=== PATIENT | male | born 1945 | race Caucasian/White ===

== ENCOUNTER 2016-12-15 14:18 | Outpatient (CLI) | payer MEDICARE, OTHER ==
[2016-12-15 13:34] LABS: CHOL/HDL RATIO 3.2 (<5.0); CHOLESTEROL 176 mg/dL; HDL CHOLESTEROL 55 mg/dL; LDL/HDL RATIO 1.8 (<3.6); TRIGLYCERIDES 118 mg/dL; VLDL CHOLESTEROL 24 mg/dL
== END 2016-12-15 14:19 | disposition home or self-care (01) ==
LOC: LAB.WCP 14:18
PROVIDERS: ATTEND Family Medicine
DX: Z00.00 Encounter for general adult medical examination without abnormal findings (principal); C85.90 Non-Hodgkin lymphoma, unspecified, unspecified site; I10 Essential (primary) hypertension; Z12.5 Encounter for screening for malignant neoplasm of prostate; E55.9 Vitamin D deficiency, unspecified
CPT/HCPCS: 36415; 80061; 82306; 84443; G0103; 84153

== ENCOUNTER 2017-03-17 08:57 | Outpatient (CLI) | payer MEDICARE, OTHER ==
[2017-03-17 12:27] LABS: ALBUMIN 4.1 g/dL (3.2-5.5); BILIRUBIN,TOTAL 1.4 mg/dL (0.2-1.0); CALCIUM 8.8 mg/dL (8.5-10.3); CREATININE 0.8 mg/dL (0.6-1.2); TOTAL PROTEIN 6.2 g/dL (6.7-8.2)
[2017-03-17 12:28] LABS: BASOPHILS # (AUTO) 0.1 10^3/uL (0.0-0.1); BASOPHILS % (AUTO) 1.3 %; EOSINOPHILS # (AUTO) 0.2 10^3/uL (0.0-0.7); EOSINOPHILS % (AUTO) 3.6 %; LYMPHOCYTES # (AUTO) 1.3 10^3/uL (1.5-3.5); LYMPHOCYTES % (AUTO) 24.7 %; MEAN CORPUSCULAR HEMOGLOBIN 31.6 pg (27.0-31.0); MEAN CORPUSCULAR HGB CONC 35.8 g/dL (32.0-36.0); MEAN CORPUSCULAR VOLUME 88.4 fL (80.0-94.0); MEAN PLATELET VOLUME 8.1 fL (7.4-11.4); MONOCYTES # (AUTO) 0.5 10^3/uL (0.0-1.0); MONOCYTES % (AUTO) 9.4 %; NEUTROPHILS # (AUTO) 3.1 10^3/uL (1.5-6.6); PLT - PLATELET COUNT 151 10^3/uL (130-450); RED BLOOD COUNT 4.75 10^6/uL (4.70-6.10); RED CELL DISTRIBUTION WIDTH 13.9 % (12.0-15.0); WHITE BLOOD COUNT 5.1 x10^3/uL (4.8-10.8)
== END 2017-03-17 08:58 | disposition home or self-care (01) ==
LOC: LAB.WCP 08:57
PROVIDERS: ATTEND Family Medicine
DX: I10 Essential (primary) hypertension (principal)
CPT/HCPCS: 36415; 80053; 85025

== ENCOUNTER 2017-10-18 13:03 | Outpatient (CLI) | payer MEDICARE, OTHER ==
[2017-10-18 13:23] LABS: BASOPHILS % (AUTO) 0.8 %; EOSINOPHILS # (AUTO) 0.2 10^3/uL (0.0-0.7); EOSINOPHILS % (AUTO) 4.5 %; LYMPHOCYTES # (AUTO) 1.5 10^3/uL (1.5-3.5); LYMPHOCYTES % (AUTO) 28.1 %; MEAN CORPUSCULAR HEMOGLOBIN 31.7 pg (27.0-31.0); MEAN CORPUSCULAR VOLUME 90.5 fL (80.0-94.0); MEAN PLATELET VOLUME 7.6 fL (7.4-11.4); MONOCYTES # (AUTO) 0.5 10^3/uL (0.0-1.0); MONOCYTES % (AUTO) 9.7 %; NEUTROPHILS % (AUTO) 56.9 %; PLT - PLATELET COUNT 156 10^3/uL (130-450); RED BLOOD COUNT 4.73 10^6/uL (4.70-6.10); RED CELL DISTRIBUTION WIDTH 14.4 % (12.0-15.0); WHITE BLOOD COUNT 5.2 x10^3/uL (4.8-10.8)
[2017-10-18 14:08] LABS: ALBUMIN 4.4 g/dL (3.2-5.5); ALKALINE PHOSPHATASE 59 IU/L (42-121); ALT ALANINE AMINOTRANSFERASE 27 IU/L (10-60); AMYLASE 46 U/L (28-100); AST ASPARTATE AMINOTRANSFERASE 33 IU/L (10-42); BILIRUBIN,TOTAL 2.3 mg/dL (0.2-1.0); BUN - BLOOD UREA NITROGEN 22 mg/dL (6-20); CALCIUM 9.3 mg/dL (8.5-10.3); CARBON DIOXIDE - CO2 29 mmol/L (21-32); CHLORIDE 100 mmol/L (101-111); CREATININE 0.7 mg/dL (0.6-1.2); GFR - MDRD 111 (>89); GLUCOSE 142 mg/dL (70-100); LIPASE 40 U/L (22-51); SODIUM 136 mmol/L (135-145); TOTAL PROTEIN 6.6 g/dL (6.7-8.2)
[2017-10-18 14:09] LABS: CRP - C-REACTIVE PROTEIN < 1.0 mg/dL (0-1.0)
--- NOTE | 2017-10-18 15:44 | XRAY Report ---
Reason: ABDOMINAL PAIN,LEFT LOWER QUADRANT Procedure Date: 10/18/2017 Accession Number: [id number] / [id number] Procedure: XR - Abdomen Acute CPT Code: FULL RESULT: EXAM: ABDOMINAL SERIES AND PA CHEST EXAM DATE: 10/18/2017 02:11 PM. CLINICAL HISTORY: Abdominal pain, left lower quadrant. COMPARISON: None. TECHNIQUE: 2 views abdomen and 1 view chest. FINDINGS: CHEST: Lungs/Pleura: No focal opacities. No effusion or pneumothorax. Mediastinum: Within exam limitations, cardiomediastinal contour is normal. ABDOMEN: Bowel Gas Pattern: Within normal limits. No dilated loops or abnormal fluid levels. Free Air: None. Other: None. IMPRESSION: Normal abdominal series (including 1-view chest). RADIA
== END 2017-10-18 13:04 | disposition home or self-care (01) ==
LOC: LAB 13:03
PROVIDERS: ATTEND Family Medicine
DX: R10.32 Left lower quadrant pain (principal)
CPT/HCPCS: 36415; 74022; 80053; 82150; 83690; 85025; 85651; 86140

== ENCOUNTER 2017-11-04 08:36 | Outpatient (CLI) | payer MEDICARE, OTHER ==
[2017-11-04] MEDS ORDERED: IOPAMIDOL-300 50 ML VIAL ONE (08:39)
[2017-11-04] MEDS ORDERED: IOPAMIDOL-300 100 ML VIAL ONE (08:39)
[2017-11-04] MEDS ORDERED: IOPAMIDOL-300 50 ML VIAL PO ONE (09:46)
[2017-11-04] MEDS ORDERED: IOPAMIDOL-300 100 ML VIAL IVP ONE (09:46)
--- NOTE | 2017-11-04 18:39 | CT Report ---
Reason: ABDOMINAL PAIN, LEFT LOWER QUADRANT Procedure Date: 11/04/2017 Accession Number: [id number] / [id number] Procedure: CT - Abdomen/Pelvis W/ CPT Code: FULL RESULT: EXAM: CT ABDOMEN AND PELVIS EXAM DATE: 11/04/2017 09:41 AM. CLINICAL HISTORY: Abdominal pain, left lower quadrant. COMPARISONS: Abdomen/pelvis with contrast 05/02/2016 9:55 AM. TECHNIQUE: Routine helical CT imaging was performed through the abdomen and pelvis. IV contrast: Yes . Enteric contrast: Yes. Reconstructions: Coronal and sagittal. In accordance with CT protocol optimization, one or more of the following dose reduction techniques were utilized for this exam: automated exposure control, adjustment of mA and/or KV based on patient size, or use of iterative reconstructive technique. FINDINGS: Lung Bases: Unremarkable. Liver: Fatty. No suspicious masses. Gallbladder/Bile Ducts: Unremarkable. Spleen: Unremarkable with incidental note of a probable flash filling hemangioma, stable and benign. Pancreas: Unremarkable. Adrenal Glands: Unremarkable. Kidneys: Numerous left renal parapelvic and cortical cysts. No suspicious masses or hydronephrosis. Peritoneal Cavity/Bowel: Severe colonic diverticulosis. No bowel obstruction or inflammatory process seen. No free air or significant free fluid. No masses or adenopathy. The appendix is not seen but there is no evidence of appendicitis. No excessive stool burden. Pelvic Organs: Moderately enlarged prostate with median lobe hypertrophy indenting into the posterior aspect of the bladder. Bladder otherwise appears unremarkable. Vasculature: No aneurysms or other significant abnormality. Bones: No significant abnormality. Other: Small fat-containing right inguinal hernia without apparent complication. IMPRESSION: 1. No acute inflammatory or obstructive process seen in the abdomen or pelvis. 2. Severe colonic diverticulosis without definitive diverticulitis. 3. Fatty liver. 4. Moderately enlarged prostate with median lobe hypertrophy indenting into the posterior aspect of the bladder. RADIA
== END 2017-11-04 08:37 | disposition home or self-care (01) ==
LOC: DI 08:36
PROVIDERS: ATTEND Family Medicine
DX: K57.30 Diverticulosis of large intestine without perforation or abscess without bleeding (principal); K76.0 Fatty (change of) liver, not elsewhere classified; N40.0 Benign prostatic hyperplasia without lower urinary tract symptoms; R10.32 Left lower quadrant pain
CPT/HCPCS: 74177; Q9967

== ENCOUNTER 2018-05-08 08:00 | Outpatient (CLI) | payer MEDICARE, OTHER ==
[2018-05-08 12:49] LABS: ALBUMIN 4.2 g/dL (3.2-5.5); ALBUMIN/GLOBULIN RATIO 1.7 (1.0-2.2); BILIRUBIN,TOTAL 2.1 mg/dL (0.2-1.0); CALCIUM 9.3 mg/dL (8.5-10.3); CREATININE 0.7 mg/dL (0.6-1.2); TOTAL PROTEIN 6.7 g/dL (6.7-8.2)
[2018-05-08 12:50] LABS: BASOPHILS % (AUTO) 0.7 %; EOSINOPHILS # (AUTO) 0.2 10^3/uL (0.0-0.7); EOSINOPHILS % (AUTO) 2.9 %; HGB - HEMOGLOBIN 15.4 g/dL (14.0-18.0); LYMPHOCYTES # (AUTO) 1.5 10^3/uL (1.5-3.5); LYMPHOCYTES % (AUTO) 25.9 %; MEAN CORPUSCULAR HEMOGLOBIN 31.6 pg (27.0-31.0); MEAN CORPUSCULAR HGB CONC 35.1 g/dL (32.0-36.0); MEAN CORPUSCULAR VOLUME 90.2 fL (80.0-94.0); MEAN PLATELET VOLUME 8.3 fL (7.4-11.4); MONOCYTES # (AUTO) 0.7 10^3/uL (0.0-1.0); MONOCYTES % (AUTO) 11.2 %; NEUTROPHILS # (AUTO) 3.4 10^3/uL (1.5-6.6); NEUTROPHILS % (AUTO) 59.3 %; PLT - PLATELET COUNT 167 10^3/uL (130-450); RED BLOOD COUNT 4.87 10^6/uL (4.70-6.10); WHITE BLOOD COUNT 5.8 x10^3/uL (4.8-10.8)
== END 2018-05-08 23:59 | disposition home or self-care (01) ==
LOC: LAB.WCP 08:00
PROVIDERS: ATTEND Family Medicine
DX: R10.9 Unspecified abdominal pain (principal)
CPT/HCPCS: 36415; 80053; 82150; 83690; 85025

== ENCOUNTER 2018-06-17 10:12 | Outpatient (CLI) | payer MEDICARE, OTHER | END 2018-06-17 10:13 | disposition critical access hospital (66) | LOC: EMS 10:12 | PROVIDERS: ATTEND Surgery | DX: R10.32 Left lower quadrant pain (principal); R14.0 Abdominal distension (gaseous) | CPT/HCPCS: A0425; A0427 ==

== ENCOUNTER 2018-06-17 10:41 | Emergency (ER) | payer MEDICARE, OTHER ==
[2018-06-17 11:25] LABS: BILIRUBIN,URINE NEGATIVE (NEGATIVE); GLUCOSE, URINE (UA) NEGATIVE (NEGATIVE); KETONES,URINE (UA) NEGATIVE (NEGATIVE); LEUKOCYTE ESTERASE, URINE NEGATIVE (NEGATIVE); NITRITE,URINE NEGATIVE (NEGATIVE); OCCULT BLOOD,URINE NEGATIVE (NEGATIVE); PROTEIN,URINE NEGATIVE (NEGATIVE); UROBILINOGEN,URINE 0.2 (NORMAL) E.U./dL (NORMAL)
[2018-06-17 11:27] LABS: CLARITY,URINE CLEAR (CLEAR)
[2018-06-17] MEDS ORDERED: HYDROmorphone 1 MG/ML CARPUJECT IVP STA (12:24)
--- NOTE | 2018-06-17 12:26 | ED Physician Documentation ---
PD HPI ABD PAIN - Stated complaint Stated Complaint: FLANK PX - Chief complaint Chief Complaint: Abd Pain - History obtained from History obtained from: Patient - History of Present Illness Timing - onset: Other (This is a 73-year-old gentleman with history of lymphoma in remission and appendectomy. He had diverticula on prior colonoscopy. He presents with 2 days of pain that moved over the last 36 hours from the left flank to the left lower quadrant associated with mild burning dysuria and frequency and he is missing one bowel movement this morning. There is no nausea or fevers. He is never had this before. He tried ibuprofen without relief.) Review of Systems Ten Systems: 10 systems reviewed and negative Constitutional: reports: Reviewed and negative Nose: reports: Reviewed and negative Throat: reports: Reviewed and negative Cardiac: reports: Reviewed and negative PD PAST MEDICAL HISTORY - Past Medical History Past Medical History: Yes Cardiovascular: None Respiratory: None Endocrine/Autoimmune: None GI: None : None HEENT: None Psych: None Musculoskeletal: None Derm: None Other Past Medical History: Lymphoma - Past Surgical History Past Surgical History: Yes General: Appendectomy HEENT: Tonsil/Adenoidectomy - Present Medications Home Medications: Ambulatory Orders Medication Instructions Recorded Confirmed Cholecalciferol (Vitamin D3) 5,000 unit PO DAILY 07/06/12 12/18/17 [Vitamin D-3] Multivitamin [Multi-Vitamin Daily] 1 each PO DAILY 07/06/12 12/18/17 Turmeric Root Extract [Turmeric] 1,500 mg PO DAILY 08/29/12 12/18/17 Vitamin B Complex [B-100 Complex] 1 each PO DAILY 05/12/14 12/18/17 Cyanocobalamin (Vitamin B-12) 3,000 mcg PO DAILY 05/18/15 12/18/17 [Vitamin B12] Zinc Acetate [Galzin] 30 mg PO DAILY 05/18/15 12/18/17 RX: Magnesium 250 mg ORAL DAILY 09/22/15 12/18/17 Ciprofloxacin HCl [Cipro] 500 mg PO BID #14 tablet 06/17/18 Hydrocodone/Acetaminophen 1 - 2 each PO Q6H PRN #14 tablet 06/17/18 [Hydrocodon-Acetaminophen 5-325] Metronidazole [Flagyl] 500 mg PO TID #21 tablet 06/17/18 - Allergies Allergies/Adverse Reactions: Allergies Allergy/AdvReac Type Severity Reaction Status Date / Time No Known Drug Allergies Allergy Verified 06/17/18 10:53 - Social History Does the pt smoke?: No Smoking Status: Never smoker Does the pt drink ETOH?: No Does the pt have substance abuse?: No - Family History Family history: reports: Non contributory - Immunizations Immunizations are current?: Yes - POLST Patient has POLST: No PD ED PE NORMAL - Vitals Vital signs reviewed: Yes - General General: Alert and oriented X 3, No acute distress - HEENT HEENT: PERRL, EOMI - Neck Neck: Supple, no meningeal sign, No bony TTP - Cardiac Cardiac: Other (tachycardic, regular) - Respiratory Respiratory: No respiratory distress, Clear bilaterally - Abdomen Abdomen: Normal bowel sounds, Soft, Non tender - Back Back: No CVA TTP - Derm Derm: Normal color, Warm and dry - Extremities Extremities: No edema, No calf tenderness / cord - Neuro Neuro: Alert and oriented X 3, Normal speech - Psych Psych: Normal mood, Normal affect Results - Vitals Vitals: Vital Signs - 24 hr 06/17/18 06/17/18 06/17/18 10:48 11:06 13:00 Temperature 36.7 C 36.6 C Heart Rate 110 H 102 H 83 Respiratory 16 16 16 Rate Blood Pressure 133/91 H 129/87 H 124/90 H O2 Saturation 95 94 94 06/17/18 15:44 Temperature 36.5 C Heart Rate 95 Respiratory 16 Rate Blood Pressure 129/89 H O2 Saturation 97 Oxygen O2 Source Room air - Labs Labs: Laboratory Tests 06/17/18 06/17/18 06/17/18 11:21 13:09 13:09 WBC 7.3 RBC 4.89 Hgb 15.2 Hct 44.1 MCV 90.2 MCH 31.0 MCHC 34.4 RDW 13.6 Plt Count 163 MPV 7.9 Neut # (Auto) 5.1 Lymph # (Auto) 1.3 L [place] # (Auto) 0.6 Eos # (Auto) 0.1 Baso # (Auto) 0.1 Absolute Nucleated RBC 0.00 Nucleated RBC % 0.0 Sodium 138 Potassium 4.0 Chloride 107 Carbon Dioxide 25 Anion Gap 6.0 BUN 18 Creatinine 0.7 Estimated GFR (MDRD) 111 Glucose 103 H Calcium 9.0 Total Bilirubin 1.9 H AST 27 ALT 28 Alkaline Phosphatase 55 Total Protein 6.3 L Albumin 4.1 Globulin 2.2 Albumin/Globulin Ratio 1.9 Lipase 33 Urine Color YELLOW Urine Clarity CLEAR Urine pH 7.0 Ur Specific [place] <=1.005 Urine Protein NEGATIVE Urine Glucose (UA) NEGATIVE Urine Ketones NEGATIVE Urine Occult Blood NEGATIVE Urine Nitrite NEGATIVE Urine Bilirubin NEGATIVE Urine Urobilinogen 0.2 (NORMAL) Ur Leukocyte Esterase NEGATIVE Ur Microscopic Review NOT INDICATED Urine Culture Comments NOT INDICATED - Rads (name of study) CT KUB Radiology: EMP read contemporaneously (Renal cysts, one which needs follow-up, diverticulosis and prostatic megaly.) PD MEDICAL DECISION MAKING - ED course ED course: 73-year-old gentleman with left flank pain moving the left lower quadrant very reminiscent of renal colic but without hematuria or findings on CT. There is no shingles rash but advised to watch out for this. After single dose of Dilaudid he was pain-free. He remained nontender on reevaluation. His lab work was unremarkable. However that point we got him up and his pain recurred. The CT was repeated with IV contrast and demonstrated colitis which he was treated for with Cipro and Flagyl. Departure - Departure Disposition: Home, Self Care Clinical Impression: Flank pain Condition: Good Record reviewed to determine appropriate education?: Yes Instructions: ED Abdominal Pain Unkn Cause Male Prescriptions: Ciprofloxacin HCl [Cipro] 500 mg PO BID #14 tablet Hydrocodone/Acetaminophen [Hydrocodon-Acetaminophen 5-325] 1 - 2 each PO Q6H PRN #14 tablet PRN Reason: pain Metronidazole [Flagyl] 500 mg PO TID #21 tablet Comments: The second CAT scan demonstrated colitis which should be successfully treated with antibiotics. Follow-up with your doctor as you should have a colonoscopy in approximately 8 weeks time after you are healed. Return if not better in 48 hours or anytime if worse or new symptoms develop. Also, you did have multiple renal cysts and diverticulosis. The radiologist was concerned about 1 of the cysts and recommended an MRI, but that would not cause pain. He also have degenerative disease in your back which could cause referred pain. There is no evidence of shingles at this point but watch out and return for any rash. Return if pain recurs. Follow-up with your doctor in a few days. Take this set of discharge instructions in the CAT scan read with you. Your blood work is normal. Discharge Date/Time: 06/17/18 15:51
--- NOTE | 2018-06-17 13:16 | CT Report ---
Reason: L flank pain Procedure Date: 06/17/2018 Accession Number: [id number] / [id number] Procedure: CT - Abdomen/Pelvis WO CPT Code: FULL RESULT: EXAM: CT ABDOMEN AND PELVIS (CT KUB) EXAM DATE: 06/17/2018 12:52 PM. CLINICAL HISTORY: L flank pain. COMPARISONS: ABDOMEN/PELVIS W05/02/2016 9:55 AM ABDOMEN/PELVIS W11/04/2017 9:36 AM. TECHNIQUE: Routine axial helical CT imaging was performed through the abdomen and pelvis without IV contrast. Reconstructions: Coronal and sagittal. In accordance with CT protocol optimization, one or more of the following dose reduction techniques were utilized for this exam: automated exposure control, adjustment of mA and/or KV based on patient size, or use of iterative reconstructive technique. FINDINGS: Lung Bases: Streaky scarring/atelectasis bilaterally. Right Kidney/Ureter: No hydronephrosis or nephrolithiasis. Left Kidney/Ureter: No hydronephrosis or nephrolithiasis. Again seen are multiple cortical and peripelvic cysts. There is a hyperdense lesion in the lower pole measuring 5 mm in diameter, which may representing complex renal cyst. Other Solid Organs: Unchanged size and appearance of scattered hypodense lesions in the liver, which may represent small cysts or hemangiomas. The adrenal glands, spleen, and pancreas are unremarkable. Gallbladder/Bile Ducts: The gallbladder is partially contracted. Peritoneal Cavity: Nonobstructive bowel gas pattern. Postoperative changes to the base of the cecum, possibly from prior appendectomy. The appendix is not visualized. No inflammatory changes at the base of the cecum. There is diffuse colonic diverticulosis without evidence of acute diverticulitis. No free air or free fluid. Pelvic Organs: The prostate is mildly enlarged and heterogeneous. The urinary bladder is unremarkable. Fat-containing right inguinal hernia. Vasculature: Scattered calcified atherosclerotic plaques throughout the abdominal aorta and iliac arteries without evidence of aneurysm. Other: The bones are osteopenic. Mild multilevel degenerative facet arthropathy. Degenerative disk disease at L3-L4, L4-L5, and L5-S1. IMPRESSION: No hydronephrosis or nephrolithiasis. Multiple left renal cortical and peripelvic cysts. A hyperdense lesion is seen in the lower pole of the left kidney, which may represent a complex renal cyst with small solid mass not entirely excluded. This could be further evaluated with renal MRI on an outpatient basis. Diffuse colonic diverticulosis without evidence of acute diverticulitis. Mild prostatomegaly. RAD[facility]
[2018-06-17 13:27] LABS: BASOPHILS # (AUTO) 0.1 10^3/uL (0.0-0.1); BASOPHILS % (AUTO) 1.4 %; EOSINOPHILS # (AUTO) 0.1 10^3/uL (0.0-0.7); EOSINOPHILS % (AUTO) 1.1 %; HGB - HEMOGLOBIN 15.2 g/dL (14.0-18.0); LYMPHOCYTES # (AUTO) 1.3 10^3/uL (1.5-3.5); LYMPHOCYTES % (AUTO) 18.4 %; MEAN CORPUSCULAR HGB CONC 34.4 g/dL (32.0-36.0); MEAN CORPUSCULAR VOLUME 90.2 fL (80.0-94.0); MEAN PLATELET VOLUME 7.9 fL (7.4-11.4); MONOCYTES # (AUTO) 0.6 10^3/uL (0.0-1.0); MONOCYTES % (AUTO) 8.6 %; NEUTROPHILS # (AUTO) 5.1 10^3/uL (1.5-6.6); NEUTROPHILS % (AUTO) 70.5 %; PLT - PLATELET COUNT 163 10^3/uL (130-450); RED BLOOD COUNT 4.89 10^6/uL (4.70-6.10); RED CELL DISTRIBUTION WIDTH 13.6 % (12.0-15.0); WHITE BLOOD COUNT 7.3 x10^3/uL (4.8-10.8)
[2018-06-17 13:44] LABS: ALBUMIN 4.1 g/dL (3.2-5.5); ALBUMIN/GLOBULIN RATIO 1.9 (1.0-2.2); BILIRUBIN,TOTAL 1.9 mg/dL (0.2-1.0); CREATININE 0.7 mg/dL (0.6-1.2); TOTAL PROTEIN 6.3 g/dL (6.7-8.2)
[2018-06-17] MEDS ORDERED: IOVERSOL 320 100 ML VIAL IVP ONE ×2 (14:26→14:41)
--- NOTE | 2018-06-17 15:10 | CT Report ---
Reason: IV only, persistent L mid abd pain Procedure Date: 06/17/2018 Accession Number: [id number] / [id number] Procedure: CT - Abdomen/Pelvis W CPT Code: FULL RESULT: EXAM: CT ABDOMEN AND PELVIS EXAM DATE: 06/17/2018 02:39 PM. CLINICAL HISTORY: Persistent L mid abd pain. COMPARISONS: ABDOMEN/PELVIS W/O 06/17/2018 12:46 PM ABDOMEN/PELVIS W/ 11/04/2017 9:36 AM. TECHNIQUE: Routine helical CT imaging was performed through the abdomen and pelvis. IV contrast: OPTIray 320 90 ML. Enteric contrast: No. Reconstructions: Coronal and sagittal. In accordance with CT protocol optimization, one or more of the following dose reduction techniques were utilized for this exam: automated exposure control, adjustment of mA and/or KV based on patient size, or use of iterative reconstructive technique. FINDINGS: Lung Bases: Mild bibasal atelectasis/scarring. Few scattered left basal pulmonary calcifications may be postinflammatory. Moderate coronary artery calcifications to the extent visualized. Liver: Probable fatty liver. Stable nonspecific 6 mm segment 4B hypodensity (3/18), possibly cyst. Gallbladder/Bile Ducts: Unremarkable. Spleen: Stable small hypervascular splenic lesion, probably flash filling hemangioma. Pancreas: Normal. Adrenal Glands: Normal. Kidneys: No definite hydronephrosis. Similar parapelvic cysts more numerous on the left and small left renal cortical hypodensities. On the prior noncontrast study, a hyperdense 5 mm lower pole lesion was described, not well evaluated on the present contrast-enhanced study. No convincing solid mass. No definite renal calculi. Ureters are symmetric, nondilated without convincing calculus. Peritoneal Cavity/Bowel: No free air or free fluid. Fairly extensive pancolonic diverticulosis. Evidence of prior partial right colectomy. There is apparent persistent mild segmental wall thickening of the mid to distal sigmoid colon, may relate to peristalsis. Nonspecific segmental colitis would be an additional diagnostic consideration. Neoplasia not excluded. The appendix is well visualized and normal. Pelvic Organs: Unremarkable. Vasculature: No aneurysm. Scattered mild atherosclerotic calcification. Bones: No significant abnormality. Other: Small fat-containing right inguinal hernia or cord lipoma. IMPRESSION: 1. Apparent mild segmental wall thickening of the mid to distal sigmoid colon, may relate to part peristalsis however nonspecific segmental colitis would be an additional diagnostic consideration. Neoplasia not excluded. 2. Pancolonic diverticulosis without acute diverticulitis. 3. Other findings as noted above. RADIA
[2018-06-17] MEDS ORDERED: metroNIDAZOLE 250 MG TABLET PO STA (15:19)
[2018-06-17] MEDS ORDERED: CIPROFLOXACIN 250 MG TABLET PO STA (15:19)
[2018-06-17 15:46] VITALS: BP 129/89
== END 2018-06-17 15:51 | disposition home or self-care (01) ==
LOC: EDUNIT# → ED 10:41
DX: K52.9 Noninfective gastroenteritis and colitis, unspecified (principal); K57.30 Diverticulosis of large intestine without perforation or abscess without bleeding; N28.1 Cyst of kidney, acquired; Z85.72 Personal history of non-Hodgkin lymphomas
CPT/HCPCS: 36415; 74176; 74177; 80053; 81003; 83690; 85025; 96374; 99283; 99284; A9270; J1170; Q9967; 81001; 87086

== ENCOUNTER 2018-07-03 11:03 | Emergency (ER) | payer MEDICARE, OTHER ==
[2018-07-03 11:35] LABS: BASOPHILS # (AUTO) 0.1 10^3/uL (0.0-0.1); BASOPHILS % (AUTO) 1.1 %; EOSINOPHILS # (AUTO) 0.2 10^3/uL (0.0-0.7); EOSINOPHILS % (AUTO) 3.5 %; HGB - HEMOGLOBIN 15.9 g/dL (14.0-18.0); LYMPHOCYTES # (AUTO) 1.4 10^3/uL (1.5-3.5); LYMPHOCYTES % (AUTO) 24.4 %; MEAN CORPUSCULAR HEMOGLOBIN 31.3 pg (27.0-31.0); MEAN CORPUSCULAR HGB CONC 34.1 g/dL (32.0-36.0); MEAN CORPUSCULAR VOLUME 91.7 fL (80.0-94.0); MEAN PLATELET VOLUME 7.7 fL (7.4-11.4); MONOCYTES # (AUTO) 0.6 10^3/uL (0.0-1.0); MONOCYTES % (AUTO) 10.9 %; NEUTROPHILS # (AUTO) 3.5 10^3/uL (1.5-6.6); NEUTROPHILS % (AUTO) 60.1 %; PLT - PLATELET COUNT 177 10^3/uL (130-450); RED BLOOD COUNT 5.07 10^6/uL (4.70-6.10); WHITE BLOOD COUNT 5.7 x10^3/uL (4.8-10.8)
[2018-07-03 11:35] LABS: BILIRUBIN,URINE NEGATIVE (NEGATIVE); GLUCOSE, URINE (UA) NEGATIVE (NEGATIVE); KETONES,URINE (UA) NEGATIVE (NEGATIVE); LEUKOCYTE ESTERASE, URINE NEGATIVE (NEGATIVE); NITRITE,URINE NEGATIVE (NEGATIVE); OCCULT BLOOD,URINE NEGATIVE (NEGATIVE); PROTEIN,URINE NEGATIVE (NEGATIVE); UROBILINOGEN,URINE 0.2 (NORMAL) E.U./dL (NORMAL)
[2018-07-03 11:37] LABS: CLARITY,URINE CLEAR (CLEAR)
--- NOTE | 2018-07-03 11:47 | ED Physician Documentation ---
PD HPI ABD PAIN - Stated complaint Stated Complaint: SIDE PX/SWELLING - Chief complaint Chief Complaint: Abd Pain - History obtained from History obtained from: Patient - History of Present Illness Timing - onset: How many weeks ago (2) Timing - duration: Weeks (2) Timing - details: Gradual onset, Still present, Waxing and waning Quality: Cramping, Aching, Pain Location: LUQ (and lateral left abd.) Improved by: No: Eating Worsened by: Other (standing position he notes bulging left side of abd and it does feel "stretched" and sore when bulging.). No: Eating Associated symptoms: No: Fever, Nausea, Vomiting, Diarrhea, Constipation, Dysuria, Hematuria, Loss of appetite Recently seen: Emergency Dept (2 weeks ago and had CT showing some mild colitis descending colon. Rx with cipro/flagyl and patient says he had improved some but not completely with that. Hurts with standing and noted bulging of abd on left side when standing.) Review of Systems Constitutional: denies: Fever, Chills, Myalgias Nose: denies: Rhinorrhea / runny nose, Congestion Throat: denies: Sore throat Cardiac: denies: Chest pain / pressure, Palpitations Respiratory: denies: Dyspnea, Cough GI: reports: Abdominal Pain, Abdominal Swelling (left side when standing or with lifting). denies: Nausea, Vomiting, Constipation, Diarrhea : denies: Dysuria, Frequency Skin: denies: Rash, Lesions Neurologic: denies: Generalized weakness, Near syncope PD PAST MEDICAL HISTORY - Past Medical History Cardiovascular: None Respiratory: None Endocrine/Autoimmune: None, Other GI: None : None HEENT: None Psych: None Musculoskeletal: None Derm: None Other Past Medical History: lymphoma, stem cell transplant - Past Surgical History Past Surgical History: Yes General: Appendectomy HEENT: Tonsil/Adenoidectomy - Present Medications Home Medications: Ambulatory Orders Medication Instructions Recorded Confirmed Multivitamin [Multi-Vitamin Daily] 1 each PO DAILY 07/06/12 07/03/18 Turmeric Root Extract [Turmeric] 1,500 mg PO DAILY 08/29/12 07/03/18 Meloxicam 15 mg PO DAILY 07/03/18 07/03/18 Naproxen 500 mg PO BID #20 tablet 07/03/18 [place]-3/Dha/Epa/Fish Oil [Fish Oil 1 each PO 07/03/18 1,000 mg Softgel] Saccharomyces Boulardii [Florastor] 250 mg PO BID #20 capsule 07/03/18 Tramadol HCl 50 mg PO Q6H PRN #15 tablet 07/03/18 - Allergies Allergies/Adverse Reactions: Allergies Allergy/AdvReac Type Severity Reaction Status Date / Time No Known Drug Allergies Allergy Verified 07/03/18 11:38 - Social History Does the pt smoke?: No Smoking Status: Never smoker Does the pt drink ETOH?: No Does the pt have substance abuse?: No - Immunizations Immunizations are current?: Yes - POLST Patient has POLST: No PD ED PE NORMAL - Vitals Vital signs reviewed: Yes - General General: Alert and oriented X 3, No acute distress, Well developed/nourished - Neck Neck: Supple, no meningeal sign, No adenopathy - Cardiac Cardiac: RRR, No murmur - Respiratory Respiratory: Clear bilaterally - Abdomen Abdomen: Soft, Non distended, No organomegaly, Other (some tender left lateral abd wall and abd. In standing position, there is broad ventral distension left lateral abd, with some tenderness laterally. ). No: Normal bowel sounds (diminished) - Male Male : Deferred - Rectal Rectal: Deferred - Back Back: No CVA TTP - Derm Derm: Normal color, Warm and dry - Extremities Extremities: No deformity, No tenderness to palpate, Normal ROM s pain, No edema , No calf tenderness / cord - Neuro Neuro: Alert and oriented X 3, No motor deficit, Normal speech Results - Vitals Vitals: Oxygen O2 Source Room air - Labs Labs: Laboratory Tests 07/03/18 07/03/18 07/03/18 11:20 11:20 11:30 WBC 5.7 RBC 5.07 Hgb 15.9 Hct 46.5 MCV 91.7 MCH 31.3 H MCHC 34.1 RDW 14.0 Plt Count 177 MPV 7.7 Neut # (Auto) 3.5 Lymph # (Auto) 1.4 L [place] # (Auto) 0.6 Eos # (Auto) 0.2 Baso # (Auto) 0.1 Absolute Nucleated RBC 0.00 Nucleated RBC % 0.1 Sodium 139 Potassium 4.3 Chloride 102 Carbon Dioxide 28 Anion Gap 9.0 BUN 25 H Creatinine 1.0 Estimated GFR (MDRD) 73 L Glucose 78 Calcium 9.8 Total Bilirubin 1.9 H AST 29 ALT 29 Alkaline Phosphatase 45 Total Protein 6.7 Albumin 4.6 Globulin 2.0 L Albumin/Globulin Ratio 2.2 Lipase 40 Urine Color YELLOW Urine Clarity CLEAR Urine pH 6.0 Ur Specific [place] <=1.005 Urine Protein NEGATIVE Urine Glucose (UA) NEGATIVE Urine Ketones NEGATIVE Urine Occult Blood NEGATIVE Urine Nitrite NEGATIVE Urine Bilirubin NEGATIVE Urine Urobilinogen 0.2 (NORMAL) Ur Leukocyte Esterase NEGATIVE Ur Microscopic Review NOT INDICATED Urine Culture Comments NOT INDICATED PD MEDICAL DECISION MAKING - ED course Complexity details: reviewed old records, reviewed results, considered differential (he does have broad ventral hernia left side with standing up. It is too broad to concern about incerceration. It could be causing some muscular lateral abd pain. He may have some residual colitis from recent workup. ), d/w patient Departure - Departure Disposition: 01 Home, Self Care Clinical Impression: Colitis Ventral hernia Qualifiers: Obstruction and gangrene presence: without obstruction or gangrene Qualified Code(s): K43.9 - Ventral hernia without obstruction or gangrene Condition: Stable Record reviewed to determine appropriate education?: Yes Instructions: Abdominal Pain Follow-Up: Lev Orourke MD [Primary Care Provider] - Prescriptions: Naproxen 500 mg PO BID #20 tablet Saccharomyces Boulardii [Florastor] 250 mg PO BID #20 capsule Tramadol HCl 50 mg PO Q6H PRN #15 tablet PRN Reason: Pain Comments: Your pain on the side may be related to some muscular pain associated with the ventral hernia. There could still be some persistence of the colitis and some inflammation due to that. We can treat it with some anti-inflammatories regularly as well as adding a probiotic to your usual medication regimen. You can add Tylenol or tramadol if needed for pains. Follow-up with your primary care if still not improved over the next week or so. If you have increasing pa in, then return as there may still be some infectious component that worsens. Discharge Date/Time: 07/03/18 13:23
[2018-07-03 11:59] LABS: ALBUMIN 4.6 g/dL (3.2-5.5); ALBUMIN/GLOBULIN RATIO 2.2 (1.0-2.2); BILIRUBIN,TOTAL 1.9 mg/dL (0.2-1.0); CALCIUM 9.8 mg/dL (8.5-10.3); TOTAL PROTEIN 6.7 g/dL (6.7-8.2)
[2018-07-03] MEDS ORDERED: KETOROLAC 30 MG/ML VIAL IVP STA (12:23)
[2018-07-03] MEDS ORDERED: traMADol 50 MG TABLET PO STA (12:23)
[2018-07-03 13:17] VITALS: BP 127/77
== END 2018-07-03 13:23 | disposition home or self-care (01) ==
LOC: ED 11:03
DX: K52.9 Noninfective gastroenteritis and colitis, unspecified (principal); K43.9 Ventral hernia without obstruction or gangrene; Z85.72 Personal history of non-Hodgkin lymphomas; Z94.84 Stem cells transplant status
CPT/HCPCS: 36415; 80053; 81003; 83690; 85025; 96374; 99283; 99284; A9270; 81001; 87086

== ENCOUNTER 2018-07-19 13:19 | Outpatient (CLI) | payer MEDICARE, OTHER ==
[2018-07-19] MEDS ORDERED: GADOBUTROL 10 MMOL/10 ML VIAL ONE (14:37)
[2018-07-19] MEDS ORDERED: GADOBUTROL 10 MMOL/10 ML VIAL IVP ONE (15:29)
--- NOTE | 2018-07-20 04:58 | MRI Report ---
Reason: RENAL CYST Procedure Date: 07/19/2018 Accession Number: [id number] / [id number] Procedure: MRI - Abdomen W/WO CPT Code: FULL RESULT: EXAM: MR ABDOMEN WITH AND WITHOUT CONTRAST (MR KIDNEYS) EXAM DATE: 07/19/2018 03:15 PM. CLINICAL HISTORY: Renal cyst. COMPARISON: ABDOMEN/PELVIS W/O 06/17/2018 12:46 PM, ABDOMEN/PELVIS W/ 06/17/2018 2:31 PM, ABDOMEN/PELVIS W/ 11/04/2017 9:36 AM. TECHNIQUE: Multiplanar breath-hold T1, T2, and DWI sequences obtained through the kidneys and abdomen on an MR scanner. Images obtained before and after administration of 8 mL Gadavist intravenous contrast. Multiphase sequences obtained through the kidneys. FINDINGS: Lung Bases: Unremarkable. Liver: No solid-appearing mass identified. Scattered tiny cysts. There is fatty infiltration. No vascular thrombosis. Biliary System: Gallbladder appears normal. No intrahepatic or extrahepatic biliary duct dilatation. Pancreas: No mass or duct dilatation seen. No peripancreatic inflammatory changes identified. Spleen: Small early filling hemangioma, otherwise unremarkable. Kidneys: Bilateral renal peripelvic cysts, left more than right. Additionally, there are left renal cortical cysts, including a couple of tiny proteinaceous cysts at the lower pole. No suspicious appearing mass. No hydronephrosis. Adrenals: Normal. Peritoneal Cavity: Colonic diverticulosis. Otherwise grossly unremarkable where seen. Study not designed to evaluate bowel. Other: None. IMPRESSION: 1. Bilateral benign renal cysts, including the tiny hyperdense left renal cyst seen on the recent CT. No suspicious renal mass. 2. Fatty liver. 3. Colonic diverticulosis. RADIA
== END 2018-07-19 13:20 | disposition home or self-care (01) ==
LOC: DI 13:19
PROVIDERS: ATTEND Family Medicine
DX: Q61.02 Congenital multiple renal cysts (principal); K76.0 Fatty (change of) liver, not elsewhere classified; K57.30 Diverticulosis of large intestine without perforation or abscess without bleeding
CPT/HCPCS: 74183; A9585

== ENCOUNTER 2018-10-17 09:59 | Outpatient (CLI) | payer MEDICARE, OTHER ==
--- NOTE | 2018-10-17 15:37 | XRAY Report ---
Reason: FOOT PAIN Procedure Date: 10/17/2018 Accession Number: [id number] / [id number] Procedure: XRN - Foot 3 View RT CPT Code: FULL RESULT: EXAM: RIGHT FOOT RADIOGRAPHY EXAM DATE: 10/17/2018 10:19 AM. CLINICAL HISTORY: FOOT PAIN. COMPARISON: None. TECHNIQUE: 3 views. FINDINGS: Bones: Normal. No fractures or bone lesions. Joints: Normal. No subluxations. Soft Tissues: Normal. No soft tissue swelling. IMPRESSION: Normal foot radiography. [facility]
== END 2018-10-17 10:00 | disposition home or self-care (01) ==
LOC: DI.N 09:59
PROVIDERS: ATTEND Family Medicine
DX: M79.671 Pain in right foot (principal)

== ENCOUNTER 2020-09-11 08:00 | Outpatient (CLI) | payer MEDICARE, OTHER ==
[2020-09-11 12:16] LABS: CREATININE,URINE 156.7 mg/dL; MICROALBUM/CREATININE RATIO,UR 2.6 ug/mg (<30.0); MICROALBUMIN,URINE 0.4 mg/dL (0-300.0)
[2020-09-11 12:33] LABS: ALBUMIN 4.4 g/dL (3.2-5.5); ALKALINE PHOSPHATASE 56 IU/L (42-121); ALT ALANINE AMINOTRANSFERASE 22 IU/L (10-60); AST ASPARTATE AMINOTRANSFERASE 25 IU/L (10-42); BILIRUBIN,TOTAL 2.1 mg/dL (0.2-1.0); BUN - BLOOD UREA NITROGEN 20 mg/dL (6-20); CALCIUM 9.4 mg/dL (8.5-10.3); CARBON DIOXIDE - CO2 28 mmol/L (21-32); CHLORIDE 104 mmol/L (101-111); CHOL/HDL RATIO 2.9 (<5.0); CHOLESTEROL 182 mg/dL; CREATININE 0.8 mg/dL (0.6-1.2); GFR - MDRD 94 (>89); GLUCOSE 98 mg/dL (70-100); HDL CHOLESTEROL 62 mg/dL; LDL CHOLESTEROL,CALCULATED 104 mg/dL; LDL/HDL RATIO 1.7 (<3.6); POTASSIUM 4.4 mmol/L (3.5-5.0); SODIUM 141 mmol/L (135-145); TOTAL PROTEIN 6.6 g/dL (6.7-8.2); TRIGLYCERIDES 81 mg/dL; VLDL CHOLESTEROL 16 mg/dL
[2020-09-11 12:37] LABS: BASOPHILS # (AUTO) 0.1 10^3/uL (0.0-0.1); BASOPHILS % (AUTO) 0.9 %; EOSINOPHILS # (AUTO) 0.2 10^3/uL (0.0-0.7); EOSINOPHILS % (AUTO) 2.9 %; ESTIMATED AVERAGE GLUCOSE 88 mg/dL (70-100); HCT - HEMATOCRIT 46.9 % (42.0-52.0); HEMOGLOBIN A1c% 4.7 % (4.27-6.07); HGB - HEMOGLOBIN 15.5 g/dL (14.0-18.0); LYMPHOCYTES # (AUTO) 1.6 10^3/uL (1.5-3.5); LYMPHOCYTES % (AUTO) 21.8 %; MEAN CORPUSCULAR HEMOGLOBIN 30.9 pg (27.0-31.0); MEAN CORPUSCULAR VOLUME 93.4 fL (80.0-94.0); MEAN PLATELET VOLUME 10.1 fL (7.4-11.4); MONOCYTES # (AUTO) 0.7 10^3/uL (0.0-1.0); MONOCYTES % (AUTO) 9.3 %; NEUTROPHILS # (AUTO) 4.9 10^3/uL (1.5-6.6); NEUTROPHILS % (AUTO) 64.8 %; PLT - PLATELET COUNT 162 10^3/uL (130-450); RED BLOOD COUNT 5.02 10^6/uL (4.70-6.10); RED CELL DISTRIBUTION WIDTH 13.5 % (12.0-15.0); WHITE BLOOD COUNT 7.5 x10^3/uL (4.8-10.8)
[2020-09-11 12:40] LABS: THYROID STIMULATING HORMONE 1.07 uIU/mL (0.34-5.60)
== END 2020-09-11 23:59 | disposition home or self-care (01) ==
LOC: LAB.WCP 08:00
PROVIDERS: ATTEND Internal Medicine
DX: C83.11 Mantle cell lymphoma, lymph nodes of head, face, and neck (principal); I10 Essential (primary) hypertension; R73.01 Impaired fasting glucose; Z12.5 Encounter for screening for malignant neoplasm of prostate
CPT/HCPCS: 36415; 80053; 80061; 82043; 82570; 83036; 84443; 85025; G0103; 83721; 84153

== ENCOUNTER 2021-05-26 07:12 | Outpatient (CLI) | payer MEDICARE, OTHER ==
[2021-05-26 12:32] LABS: CALCIUM 8.9 mg/dL (8.5-10.3); CREATININE 0.7 mg/dL (0.6-1.2); POTASSIUM 4.1 mmol/L (3.5-5.0)
== END 2021-05-26 07:13 | disposition home or self-care (01) ==
LOC: LAB.N 07:12
PROVIDERS: ATTEND Internal Medicine
DX: G62.9 Polyneuropathy, unspecified (principal)
CPT/HCPCS: 36415; 80048

== ENCOUNTER 2021-06-10 12:37 | Outpatient (CLI) | payer MEDICARE, OTHER ==
[2021-06-10] MEDS ORDERED: IOVERSOL 320 100 ML VIAL IVP ONE ×2 (12:53→13:10)
--- NOTE | 2021-06-10 19:03 | CT Report ---
PROCEDURE: CT neck with contrast INDICATIONS: MANTLE CELL LYMPHOMA. Right neck palpable nodule, marked with a BB CONTRAST: IV CONTRAST: Optiray 320 ml: 100 PO CONTRAST: *NO PO CONTRAST TECHNIQUE: After the administration of intravenous contrast, 3.0 mm axial sections acquired from the sella to the aortic arch. Additional oblique axial 3.0 mm sections acquired through the pharynx. 3 mm thick coronal reformats were generated. For radiation dose reduction, the following was used: a utomated exposure control, adjustment of mA and/or kV according to patient size. COMPARISON: None. FINDINGS: Image quality: Excellent. Lymph nodes: No enlarged lymph nodes seen throughout the neck. Vessels: Visualized vasculature appears patent. Neck spaces: The oropharynx, nasopharynx, and pharynx demonstrate no mucosal lesions. The vocal cor ds, false vocal cords, pyriform sinuses, epiglottis, vallecula, and tongue base all appear normal. E xtramucosal spaces appear unremarkable. Glands: The parotid and submandibular glands appear normal. The thyroid is normal in size and there are no incidental findings. Skin BB marker corresponds with the right submandibular gland Miscellaneous: Visualized brain and orbits appear normal. Lung apices appear clear. Superficial so ft tissues appear normal. Bones: No suspicious bony lesions. Visualized sinuses and mastoids appear unremarkable. IMPRESSION: 1. Unremarkable CT of the neck without adenopathy or mass lesion 2. Marked palpable abnormality in the right neck corresponds with the normal-appearing right submandi bular gland, stable from the prior Reviewed by: Roberto Stevenson MD on 06/10/2021 6:02 PM [email or web address] Approved by: Roberto Stevenson MD on 06/10/2021 6:02 PM AKDT Station ID: [id number]
== END 2021-06-10 12:38 | disposition home or self-care (01) ==
LOC: DI 12:37
PROVIDERS: ATTEND Internal Medicine
DX: C83.10 Mantle cell lymphoma, unspecified site (principal); C83.11 Mantle cell lymphoma, lymph nodes of head, face, and neck
CPT/HCPCS: 70491; Q9967

== ENCOUNTER 2022-05-16 13:27 | Outpatient (CLI) | payer MEDICARE, OTHER ==
[2022-05-16 17:39] LABS: BASOPHILS # (AUTO) 0.1 10^3/uL (0.0-0.1); BASOPHILS % (AUTO) 1.2 %; EOSINOPHILS # (AUTO) 0.4 10^3/uL (0.0-0.7); EOSINOPHILS % (AUTO) 6.6 %; HGB - HEMOGLOBIN 14.3 g/dL (14.0-18.0); LYMPHOCYTES % (AUTO) 33.4 %; MEAN CORPUSCULAR HEMOGLOBIN 30.5 pg (27.0-31.0); MEAN CORPUSCULAR HGB CONC 32.5 g/dL (32.0-36.0); MEAN CORPUSCULAR VOLUME 93.8 fL (80.0-94.0); MEAN PLATELET VOLUME 10.5 fL (7.4-11.4); MONOCYTES # (AUTO) 0.5 10^3/uL (0.0-1.0); MONOCYTES % (AUTO) 8.8 %; PLT - PLATELET COUNT 178 10^3/uL (130-450); RED BLOOD COUNT 4.69 10^6/uL (4.70-6.10); RED CELL DISTRIBUTION WIDTH 13.2 % (12.0-15.0); WHITE BLOOD COUNT 6.1 x10^3/uL (4.8-10.8)
[2022-05-16 18:11] LABS: ALBUMIN/GLOBULIN RATIO 1.7 (1.0-2.2); ALKALINE PHOSPHATASE 60 IU/L (42-121); ALT ALANINE AMINOTRANSFERASE 26 IU/L (10-60); AST ASPARTATE AMINOTRANSFERASE 27 IU/L (10-42); BILIRUBIN,TOTAL 1.6 mg/dL (0.2-1.0); BUN - BLOOD UREA NITROGEN 18 mg/dL (6-20); CALCIUM 9.1 mg/dL (8.5-10.3); CARBON DIOXIDE - CO2 30 mmol/L (21-32); CHLORIDE 102 mmol/L (101-111); CHOL/HDL RATIO 2.5 (<5.0); CHOLESTEROL 126 mg/dL; CREATININE 0.8 mg/dL (0.6-1.2); GFR - MDRD 94 (>89); GLUCOSE 118 mg/dL (70-100); HDL CHOLESTEROL 50 mg/dL; LDL CHOLESTEROL,CALCULATED 54 mg/dL; LDL/HDL RATIO 1.1 (<3.6); SODIUM 138 mmol/L (135-145); TOTAL PROTEIN 6.3 g/dL (6.7-8.2); TRIGLYCERIDES 108 mg/dL; VLDL CHOLESTEROL 22 mg/dL
[2022-05-16 18:21] LABS: THYROID STIMULATING HORMONE 1.01 uIU/mL (0.34-5.60)
[2022-05-16 22:01] LABS: ESTIMATED AVERAGE GLUCOSE 88 mg/dL (70-100); HEMOGLOBIN A1c% 4.7 % (4.27-6.07)
== END 2022-05-16 13:28 | disposition home or self-care (01) ==
LOC: LAB.N 13:27
PROVIDERS: ATTEND Internal Medicine
DX: C83.11 Mantle cell lymphoma, lymph nodes of head, face, and neck (principal); E78.5 Hyperlipidemia, unspecified; R73.01 Impaired fasting glucose; Z12.5 Encounter for screening for malignant neoplasm of prostate; Z13.29 Encounter for screening for other suspected endocrine disorder
CPT/HCPCS: 36415; 80053; 80061; 83036; 83615; 84443; 85025; G0103; 83721; 84153

== ENCOUNTER 2022-08-25 08:00 | Outpatient (CLI) | payer MEDICARE, OTHER | END 2022-08-25 08:15 | disposition home or self-care (01) | LOC: LAB.N 08:00 | PROVIDERS: ATTEND Registered Nurse | DX: L03.90 Cellulitis, unspecified (principal) | CPT/HCPCS: 87070; 87181; 87205 ==